=== PATIENT | female | born 1980 | race African-American/Black ===

== ENCOUNTER 2019-06-23 18:10 | Emergency (ER) | payer BC, SELFPAY ==
--- OUTSIDE RECORDS SUMMARY | 2019-06-23 18:12 | XMS REPORT ---
:1980 [facility] Tariq [address] [place] [id number] Care Team Providers Name Role Phone Unavailable Unavailable Unavailable Problems This patient has no known problems. Allergies, Adverse Reactions, Alerts This patient has no known allergies or adverse reactions. Medications This patient has no known medications.
--- OUTSIDE RECORDS SUMMARY | 2019-06-23 18:12 | XMS REPORT | Summary of Care ---
:1980 Author Organization [facility] Address [address] [place] [id number] Care Team Providers Name Role Phone Renea Hastings Primary Care Provider Reason for Visit Reason Comments Well Woman Exam Encounter Details Date Type Department Care Team Description 12/19/2018 Office Visit [facility]- Renea Hastings Well woman exam (Primary Dx); JOHN Cuellar Dysuria; [address] Encounter for other contraceptive management; [employer], [place] KRI[place]IN A Vaginal discharge [id number] [place], [place] [id number] Allergies Active Allergy Reactions Severity Noted Date Comments Sulfa (Sulfonamide Antibiotics) Hives 11/16/2017 documented as of this encounter (statuses as of 12/20/2018) Medications Medication Sig Dispensed Refills Start Date End Date Status doxycycline 100 mg Take 1 capsule 20 capsule 0 11/16/2017 Active capsule by mouth 2 (two) times daily. ondansetron (ZOFRAN Take 1 tablet by 12 tablet 0 11/16/2017 Active ODT) 4 mg mouth every 8 disintegrating tablet (eight) hours as needed for Nausea and Vomiting (N/V). norgestimate-ethinyl Take 1 tablet by 0 Active estradiol mouth daily. (TRI-SPRINTEC) 0.18/0.215/0.25 mg-35 mcg (28) tablet norgestimate-ethinyl Take 1 tablet by 1 Package 2 12/19/2018 Active estradiol mouth daily. (GCB-GA-CHUZCQKR) 0.18/0.215/0.25 mg-25 mcg tabletIndications: Encounter for other contraceptive management documented as of this encounter (statuses as of 12/20/2018) Active Problems Problem Noted Date Well woman exam 12/19/2018 Contraceptive management 12/19/2018 Tobacco use disorder 12/19/2018 documented as of this encounter (statuses as of 12/20/2018) Social History Tobacco Use Types Packs/Day Years Used Date Current Every Day Smoker Cigarettes 0.1 Started: 12/19/1998 Smokeless Tobacco: Never Used Tobacco Cessation: Ready to Quit: No; Counseling Given: Yes Alcohol Use Drinks/Week oz/Week Comments Not Currently Sex Assigned at Date Recorded Not on file Job Start Date Occupation Industry Not on file Not on file Not on file Travel History Travel Start Travel End No recent travel history available. documented as of this encounter Last Filed Vital Signs Vital Sign Reading Time Taken Comments Blood Pressure 158/86 12/19/2018 4:01 PM CDT Pulse 94 12/19/2018 4:01 PM CDT Temperature 37.8 C (100 F) 12/19/2018 4:01 PM CDT Respiratory Rate 16 12/19/2018 4:01 PM CDT Oxygen Saturation - - Inhaled Oxygen Concentration - - Weight 59.6 kg (131 lb 6 oz) 12/19/2018 4:01 PM CDT Height 154.9 cm (5' 1") 12/19/2018 4:01 PM CDT Body Mass Index 24.82 12/19/2018 4:01 PM CDT documented in this encounter Patient Instructions Patient InstructionsLeighann Mcdonnell LVN - 12/19/2018 3:45 PM CDT Clinical Breast Exam Many health organizations recommend a yearly clinical breast exam. This exam may be done by a restaurant expeditor, family healthcare provider, nurse practitioner, nurse loading unit operator crimping, or specially trained nurse. Yearly breast exams help tomake surethat breast conditions are found early. Your healthcare providers role A healthcare professional knows the tests and follow-up care needed if a problem is found. Your clinical exam is also a great time to ask questions about breast self-exams. You can find out if yourechecking your breasts in the best way. Or you may want to ask how , breast implants, or breast reduction surgery affect the way you should check your breasts. Diagnostic tests If a clinical exam reveals a breast change, you may have other tests to find out more. These tests may include: Mammography. A low-dose X-ray of your breast tissue. Ultrasound. An imaging test that uses sound waves to create images of your breast. Biopsy. A small amount of breast tissue is removed by needle or by a cut ( incision). The tissue is then checked under a microscope. Guidelines for having clinical breast exams The [place] [employer] recommends that starting at age 29, you should have a clinical breast exam every 1 to 3 years. After age 40, have a clinical breast exam each year. If youre at higher risk for breast cancer, you may need exams more often. Risk factors for breast cancer may include: Being over 50 or postmenopausal Having a family history of breast cancer Having the BRCA1 or BRCA2 gene mutation or certain other gene mutations Having more menstrual periods due to starting menstruation early(before age 12) or having a late menopause (after age 55) Having no pregnancies Having a first after age 30 Being obese Having a history of radiation treatment to your chest area Exposure to KARIN during your mother's Not being active Drinking too much alcohol Having dense breast tissue Taking hormone therapy after menopause Other health organizations have different recommendations. Talk with your healthcare provider about what is best for you. Date Last Reviewed: 12/19/201619990352-34[address] [employer] [place] [address]. All rights reserved. This information is not intended as a substitute for professional medical care. Always follow your healthcare professional's instructions. Breast Health: Breast Self-Awareness What is breast self-awareness? Breast self-awareness is knowing how your breasts normally look and feel. Your breasts change as yougo through different stages of your life. So its important to learn what is normal for your breasts. Breast self-awareness helps you notice any changes in your breasts right away. Report any changesto your healthcare provider. Why is breast self-awareness important? Many experts now say that women should focus on breast self-awareness instead of doing a breast self-examination (BSE). These experts include the [place] [employer], the U.S. Preventive Services Task Force, and the [place] [employer]. Some experts even advise notteaching women to do a BSE. Thats because research hasnt shown a clear benefit to doing BSEs. Breast self-awareness is different than a BSE. Breast self-awareness isnt about following a certain method and schedule. Its about knowing what's normal for your breasts. That way you can notice even small changes right away. If you see any changes, report them to your healthcare provider. Changes to look for Call your healthcare provider if you find any changes in your breasts that concern you. These changes may include: A lump Nipple discharge other than breastmilk, especially a bloody discharge Swelling A change in size or shape Skin irritation, such as redness, thickening, or dimpling of the skin Swollen lymph nodes in the armpit Nipple problems, such as pain or redness If you find a lump Contact your provider if you find lumpiness in one breast, feel something different in the tissue, or feel a definite lump. Sometimes lumpiness may be due to menstrual changes. But there may be reason for concern. Your provider may want to see you right away if you have: Nipple discharge that is bloody Skin changes on your breast, such as dimpling or puckering Its normal to be upset if you find a lump. But its important to contact your provider right away. Remember that most breast lumps are benign. This means they are not cancer. Date Last Reviewed: 12/19/201619994304-3742 [employer]. [address] [place] [address]. All rights reserved. This information is not intended as a substitute for professional medical care. Always follow your healthcare professional's instructions. Prevention Guidelines,Women Ages 18 to 39 Screening tests and vaccines are an important part of managing your health. A screening test is doneto find possible disorders or diseases in people who don' t have any symptoms. The goal is to find a disease early so lifestyle changes can be made and you can be watched more closely to reduce the riskof disease, or to detect it early enough to treat it most effectively. Screening tests are not considered diagnostic, but are used to determine if more testing is needed. Health counseling is essential, too. Below are guidelines for these, for women ages 18 to 39. Talk with your healthcare provider tomake sure youre up-to- date on what you need. Screening Who needs it How often Alcohol misuse All women in this age group At routine exams Blood pressure All women in this age group Yearly checkup if your blood pressure is normal Normal blood pressure is less than 120/80 mm Hg If your blood pressure reading is higher than normal, follow the advice of your healthcare provider Breast cancer All women in this age group should talk with their healthcare providers about the needfor clinical breast exams (CBE)1 Clinical breast exam every 3 years1 Cervical cancer Women ages 21 and older Women between ages 21 and 29 should have a Pap test every 3 years; women between ages 30 and 65 are advised to have a Pap test plus an HPV test every 5 years Chlamydia Sexually active women ages 25 and younger, and women at increased risk for infection (suchas having multiple sex partners) Every year if you're at risk or have symptoms Depression All women in this age group At routine exams Type 2 diabetes, prediabetes All women with no symptoms who are overweight or obese and have 1 or more other risk factors for diabetes At least every 3 years. Also, testing for diabetes during after the 24th week. Type 2 diabetes, prediabetes All women diagnosed with gestational diabetes Lifelong testing every 3 years Type 2 diabetes All women with prediabetes Every year Gonorrhea Sexually active women at increased risk for infection At routine exams Hepatitis C Anyone at increased risk At routine exams HIV All women should be tested at least once for HIV between the ages of 13 and 64 At routine exams.Those with risk factors for HIV should be tested at least annually. Obesity All women in this age group At routine exams Syphilis Women at increased risk for infection should talk with their healthcare provider At routineexams Tuberculosis Women at increased risk for infection should talk with their healthcare provider Ask your healthcare provider Vision All women in this age group At least 1 complete exam in your 20s, and 2 in your 30s Vaccine2 Who needs it How often Chickenpox (varicella) All women in this age group who have no record of this infection or vaccine 2doses; the second dose should be given 4 to 8 weeks after the first dose Hepatitis A Women at increased risk for infection should talk with their healthcare provider 2 dosesgiven at least 6 months apart Hepatitis B Women at increased risk for infection should talk with their healthcare provider 3 dosesover 6 months; second dose should be given 1 month after the first dose; the third dose should be given at least 2 months after the second dose and at least 4 months after the first dose Haemophilus influenzaeType B (HIB) Women at increased risk for infection should talk with their healthcare provider 1 to 3 doses Human papillomavirus (HPV) All women in this age group up to age 26 3 doses; the second dose should be given 1 to 2 months after the first dose and the third dose given 6 months after the first dose Influenza (flu) All women in this age group Once a year Measles, mumps, rubella (MMR) All women in this age group who have no record of these infections or vaccines 1 or 2 doses Meningococcal Women at increased risk for infection should talk with their healthcare provider 1 or more doses Pneumococcal conjugate vaccine (PCV13)and pneumococcal polysaccharide vaccine(PPSV23) Women at increased risk for infection should talk with their healthcare provider PCV13: 1 dose ages 19 to 65 (protects against 13 types of pneumococcal bacteria) PPSV23: 1 to2 doses through age 64, or 1 dose at 65 or older (protects against 23 types of pneumococcal bacteria) Tetanus/diphtheria/pertussis (Td/Tdap) booster All women in this age group Td every 10 years, or a one-time dose of Tdap instead of a Td booster after age 18 , then Td every 10 years Counseling Who needs it How often BRCA gene mutation testing for breast and ovarian cancer susceptibility Women with increased risk for having gene mutation When your risk is known Breast cancer and chemoprevention Women at high risk for breast cancer When your risk is known Diet and exercise Women who are overweight or obese When diagnosed, and then at routine exams Domestic violence Women at the age in which they are able to have children At routine exams Sexually transmitted infection prevention Women who are sexually active At routine exams Skin cancer Prevention of skin cancer in fair-skinned adults At routine exams Use of tobacco and the health effects it can cause All women in this age group Every visit 1 According to the ACS, women ages 20 to 39 years should have a clinical breast exam (CBE) as part of their routine health exam every 3 years. Breast self- exams are an option for women starting in their 20s.But the USPSTF does not recommend CBE. Date Last Reviewed: 02/18/201719995507-4003 [employer]. [address] [place] [address]. All rights reserved. This information is not intended as a substitute for professional medical care. Always follow your healthcare professional's instructions. Understanding STDs When it comes to sex, nothing is risk-free. Any sexual contact with the penis, vagina, anus, or mouth can spread a sexually transmitted disease (STD). The only sure way to prevent STDs is abstinence (not having sex). But there are ways to make sex safer. Use a latex condom each time you have sex. And choose your partner wisely. Use condoms for safer sex If you have sex, latex condoms provide the best protection against STDs. Latex condoms stop the exchange of body fluids that carry certain STDs. They also limit contact with affected skin. Be aware though, a condom doesnt cover all skin. So, affected skin that is not covered can still transfer disease. But you re safer with a condom than without one. Use a condom even if you use other control. While control methods like the pill or IUD help prevent , they do not protect against STDs. Choose the right condom Condoms made of latex prevent disease best. If youre allergic to latex, use polyurethane condoms instead. Male condoms fit over the penis. Female condoms line the vagina. Before buying a condom, read the label to be sure it prevents disease. Some novelty condoms dont. The right lubricant helps Buy lubricated condoms or use lubricant. This provides greater comfort and reduces the risk of condom breakage. Use only water-based lubricants. Dont use oil, lotion, or petroleum jelly. They can weaken the condom, causing breakage. Also, you may want to choose lubricants without nonoxynol-9. Its now known that this spermicide does not prevent disease and may cause irritation. Use condoms correctly For condoms to work, they must be used the right way. Keep these tips in mind: Use a new latex condom each time you have sex. Slip the condom on the penis before any contact ismade. When ready to withdraw, hold the rim of the condom as the penis pulls out. This prevents the condom from slipping off. Check the expiration date before using a condom. Dont store condoms in places that can get hot, such as a car or a wallet that is carried in a back pocket. Get to know your partner Safer sex is a process. It involves getting to know your partner and making informed choices. Ask each other how many partners you have had in the past, and how many you have now. Find out if either ofyou has an STD. If you decide to have sex, use a condom each time. Dont stop using condoms unlessyoure sure neither of you has other partners and youve both been tested to confirm you donthave STDs. Then stay free of disease by having sex only with each other (monogamy). Keep your cool Dont let alcohol or drugs cloud your judgment. They could lead you to have sex with someone you wouldnt have chosen if you were sober. Or, you might forget to use a condom. If you do plan to havesex, keep a latex condom with you. Dont wait until youre in the heat of passion to try to findone. Consider abstinence The only way to be sure you wont get an STD is to abstain from sex. Abstinence is a choice that many people make at some point in their lives. Maybe you want to wait until you are sure youre ready before you have sex. Maybe youd like a break from the responsibilities of sex for a while. Or maybe you just want to know your partner better before taking the next step. Abstinence is a choice youcan make now to protect your future. Date Last Reviewed: 04/20/201619996217-[address] [employer] [place] [address]. All rights reserved. This information is not intended as a substitute for professional medical care. Always follow your healthcare professional's instructions. Understanding HIV and AIDS If you know how HIV (human immunodeficiency virus) can get into your body and what happens once its there, youll be better prepared to protect yourself or others against this virus. A person withHIV can look and feel perfectly healthy. But that person can give HIV to others as soon as he or sheis infected with the virus. Note: Having unsafe or unprotected sex or sharing needles put you at risk for HIV. Talk with your healthcare provider about ways to protect yourself or a loved one from getting HIV. How HIV enters the body HIV is carried in semen, vaginal fluid, blood, and breast milk. During sex, HIV can enter the body through the fragile tissue that lines the vagina, penis, anus,and mouth. During drug use, tattooing, or body piercing, the virus can enter the bloodstream through a shared needle. A mother who has HIV can infect her child during childbirth and through . How HIV infection progresses After HIV enters the body, it attacks the immune system in stages. A person with HIV can infect others once the virus enters the bloodstream. HIV with no symptoms. A person with HIV may have no symptoms for years. A positive blood test for HIV antibodies 6 weeks to 6 months after HIV enters the body may be the only sign of infection. HIV with symptoms.Some people develop an illness similar to mononucleosis (or "mono") 2 to 4 weeksafter the virus enters the body. Symptoms may include swollen lymph glands, chills, fever, night sweats, weakness, weight loss, skin rashes, mouth ulcers, or sore throat. Symptoms may be mild at first and then slowly go away. In a very few individuals, symptoms may get progressively worse and last forlonger and longer periods. AIDS. AIDS is the last stage of HIV infection. Diseases and cancers begin to overcome the body. It is these diseases, not the virus itself, that cause . HIV may also attack the brain and nervous system, causing seizures and loss of memory and body movement. Date Last Reviewed: 03/21/201619993028-0[address] [employer]. [address] [place] [address]. All rights reserved. This information is not intended as a substitute for professional medical care. Always follow your healthcare professional's instructions. Eating Heart-Healthy Foods Eating has a big impact on your heart health. In fact, eating healthier can improve several of your heart risks at once. For instance, it helps you manage weight, cholesterol, and blood pressure. Here are ideas to help you make heart- healthy changes without giving up allthe foods and flavors you love. Getting started Talk with your healthcare provider about eating plans, such as the DASH or Mediterranean diet. You may also be referred to a dietitian. Change a few things at a time. Give yourself time to get used to a few eating changes before adding more. Work to create a tasty, healthy eating plan that you can stick to for the rest of your life. Goals for healthy eating Below are some tips to improve your eating habits: Limit saturated fats and trans fats. Saturated fats raise your levels of cholesterol, so keep these fats to a minimum. They are found in foods such as fatty meats, whole milk, cheese, and palm and coconut oils. Avoid trans fats because they lower good cholesterol as well as raise bad cholesterol. Trans fats are most often found in processed foods. Reduce sodium (salt) intake. Eating too much salt may increase your blood pressure. Limit your sodium intake to 2,300 milligrams (mg) per day(the amount in 1 teaspoon of salt), or less if your healthcare provider recommends it. Dining out less often and eating fewer processed foods are two great ways to decrease the amount of salt you consume. Managing calories. A calorie is a unit of energy. Your body morejon calories for fuel, but if you eat more calories than your body morejon, the extras are stored as fat. Your healthcare provider can help you create a diet plan to manage your calories. This will likely include eating healthier foods as well as exercising regularly. To help you track your progress, keep a diary to record what you eat and how often you exercise. Choose the right foods Aim to make these foods iglesia of your diet. If you have diabetes, you may have different recommendations than what is listed here: Fruits and vegetables provide plenty of nutrients without a lot of calories. At meals, fill half your plate with these foods. Split the other half of your plate between whole grains and lean protein. Whole grains are high in fiber and rich in vitamins and nutrients. Good choices include whole-wheat bread, pasta, and brown rice. Lean proteins give you nutrition with less fat. Good choices include fish, skinless chicken, and beans. Low-fat or nonfat dairy provides nutrients without a lot of fat. Try low-fat or nonfat milk, cheese, or yogurt. Healthy fats can be good for you in small amounts. These are unsaturated fats , such as olive oil,nuts, and fish. Try to have at least 2 servings per week of fatty fish, such as salmon, sardines, mackerel, rainbow trout, and albacore tuna. These contain omega-3 fatty acids, which are good for your heart. Flaxseed is another source of a heart-healthy fat. More on heart-healthy eating Read food labels Healthy eating starts at the grocery store. Be sure to pay attention to food labels on packaged foods. Look for products that are high in fiber and protein, and low in saturated fat, cholesterol, and sodium. Avoid products that contain trans fat. And pay close attention to serving size. For instance, if you plan to eat two servings, double all the numbers on the label. Prepare food right A muse part of healthy cooking is cutting down on added fat and salt. Look on the internet for lower-fat, lower-sodium recipes. Also, try these tips: Remove fat from meat and skin from poultry before cooking. Skim fat from the surface of soups and sauces. Broil, boil, bake, steam, grill, and microwave food without added fats. Choose ingredients that spice up your food without adding calories, fat, or sodium. Try these items: horseradish, hot sauce, lemon, mustard, nonfat salad dressings, and vinegar. For salt-free herbs and spices, try basil, cilantro, cinnamon, pepper, and tru. Date Last Reviewed: 02/18/201719999021-9365 [employer] [address] [place] [address]. All rights reserved. This information is not intended as a substitute for professional medical care. Always follow your healthcare professional's instructions. Understanding [place] MyPlate The USDA (U.S. Department of Agriculture) has guidelines to help you make healthy food choices. These are called MyPlate. MyPlate shows the food groups that make up healthy meals using the image of a place setting. Before you eat, think about the healthiest choices for what to put onto your plate or into your cup or bowl. To learn more about building a healthy plate, visit www.choosemyplate.gov. The food groups Fruits. Any fruit or 100% fruit juice counts as part of the Fruit Group. Fruits may be fresh, canned, frozen, or dried, and may be whole, cut-up, or pureed. Make half your plate fruits and vegetables. Vegetables. Any vegetable or 100% vegetable juice counts as a member of the Vegetable Group. Vegetables may be fresh, frozen, canned, or dried. They can be served raw or cooked and may be whole, cut-up, or mashed. Make half your plate fruits and vegetables. Grains. All foods made from grains are part of the Grains Group. These include wheat, rice, oats,cornmeal, and barley such as bread, pasta, oatmeal, cereal, tortillas, and grits. Grains should be no more than a quarter of your plate. At least half of your grains should be whole grains. Protein. This group includes meat, poultry, seafood, beans and peas, eggs, processed soy products(like tofu), nuts (including nut butters), and seeds. Make protein choices no more than a quarter ofyour plate. Meat and poultry choices should be lean or low fat. Dairy. All fluid milk products and foods made from milk that contain calcium , like yogurt and cheese, are part of the Dairy Group. (Foods that have little calcium, such as cream, butter, and cream cheese, are not part of the group.) Most dairy choices should be low-fat or fat-free. Oils. These are fats that are liquid at room temperature. They include canola , corn, olive, soybean, and sunflower oil. Foods that are mainly oil include mayonnaise, certain salad dressings, and soft margarines. You should have only 5 to 7 teaspoons of oils a day. You probably already get this muchfrom the food you eat. Date Last Reviewed: 12/19/201619992100-5682 [employer]. [address] [place] [address]. All rights reserved. This information is not intended as a substitute for professional medical care. Always follow your healthcare professional's instructions. documented in this encounter Progress Notes Renea Hastings, CNP - 12/19/2018 3:45 PM CDT Chief complaint: Chief Complaint Patient presents with Well Woman Exam HPI: the patient is here for WWE and contraceptive management. She reports she is doing well today. She does reports vaginal discharge with odor. She reports the last time she had intercourse was about2 months ago, she declines having a new partner. She reports ocp use for control and reports the last time she took a pill was about 1 month ago. Pt (denies) current or past physical, sexual or emotional abuse. Histories OB History Para Term AB Living 2 2 2 2 SAB TAB Ectopic Multiple Live Births 2 # Outcome Date GA Lbr Reynaldo/2nd Weight Sex Delivery Anes PTL Lv 2 Term 08/17/11 40w0d 5 lb 14 oz (2.665 kg) M NORMAL SPONT Y DEVONTE 1 Term 07/18/02 40w0d 7 lb 1 oz (3.204 kg) M NORMAL SPONT DEVONTE History reviewed. No pertinent past medical history. Family History Problem Relation Age of Onset Arthritis Father High cholesterol Father No Significant Medical Problems Sister No Significant Medical Problems Brother No Significant Medical Problems Maternal Aunt No Significant Medical Problems Maternal Uncle No Significant Medical Problems Paternal Aunt No Significant Medical Problems Paternal Uncle No Significant Medical Problems Maternal Grandmother No Significant Medical Problems Maternal Grandfather No Significant Medical Problems Paternal Grandmother No Significant Medical Problems Paternal Grandfather Family Status Relation Name Status Mo Alive Fa Alive Sis Alive Bro Alive MAunt Alive MUnc Alive PAunt Alive PUnc Alive MGMo Alive MGFa Alive PGMo Alive PGFa Alive Past Surgical History: Procedure Laterality Date CHOLECYSTECTOMY 2016 Social History Socioeconomic History Marital status: Single Spouse name: Not on file Number of children: Not on file Years of education: Not on file Highest education level: Not on file Occupational History Not on file Social Needs Financial resource strain: Not on file Food insecurity: Worry: Not on file Inability: Not on file Transportation needs: Medical: Not on file Non-medical: Not on file Tobacco Use Smoking status: Current Every Day Smoker Packs/day: 0.10 Types: Cigarettes Start date: 12/19/1998 Smokeless tobacco: Never Used Substance and Sexual Activity Alcohol use: Not Currently Drug use: Not Currently Sexual activity: Yes Partners: Male control/protection: Pill Comment: Last intercourse 10/19/2018 Lifestyle Physical activity: Days per week: Not on file Minutes per session: Not on file Stress: Not on file Relationships Social connections: Talks on phone: Not on file Gets together: Not on file Attends caodaism service: Not on file Active member of club or organization: Not on file Attends meetings of clubs or organizations: Not on file Relationship status: Not on file Intimate partner violence: Fear of current or ex partner: Not on file Emotionally abused: Not on file Physically abused: Not on file Forced sexual activity: Not on file Other Topics Concern Not on file Social History Narrative Not on file Social History Substance and Sexual Activity Sexual Activity Yes Partners: Male control/protection: Pill Comment: Last intercourse 10/19/2018 Labs Labs are pending. Radiology No new radiology. Allergies Kalpana is allergic to sulfa (sulfonamide antibiotics). Medications Kalpana has a current medication list which includes the following prescription( s): norgestimate-ethinyl estradiol, norgestimate-ethinyl estradiol, doxycycline , and ondansetron. Review of Systems Constitutional: Negative. HENT: Negative. Eyes: Negative. Respiratory: Negative. Breasts: Negative. Cardiovascular: Negative. Gastrointestinal: Negative. Genitourinary: Positive for vaginal discharge. Musculoskeletal: Negative. Skin: Negative. Neurological: Negative. Psychiatric/Behavioral: Negative. Endocrine: Endocrine negative BP (!) 158/86 (BP Location: Right arm, Patient Position: Sitting, BP CUFF SIZE: Adult Medium) | Pulse 94 | Temp 37.8 C (100 F) (Oral) | Resp 16 | Ht 5' 1" (1.549 m) | Wt 131 lb 6 oz (59.6 kg)| LMP 12/04/2018 (Approximate) | BMI 24.82 kg/m Pregravid BMI: Could not be calculated Physical Exam Vitals reviewed. Constitutional: She is oriented to person, place, and time. She appears well- developed. Her body habitus is normal. Neck: No tenderness and no mass. No thyroid nodules and no thyromegaly palpated. No neck adenopathy. Cardiovascular: Regular rate and rhythm. No gallop, no friction rub and no murmur auscultated. No peripheral edema present. Pulmonary/Chest: Breath sounds clear to auscultation. Normal inspiratory effort. Abdominal: Abdomen is soft. No mass palpated. No tenderness present. There is no hepatosplenomegaly,splenomegaly or hepatomegaly. There is no rigidity. No hernia palpated or inspected. Neuro/Psychiatric: She has a normal mood and affect. She is oriented to person, place, and time. Skin: No lesion, no rash and no ulceration present. Lymphadenopathy: No neck adenopathy present. No axillary adenopathy present. No inguinal adenopathy present. Breast: Right breast exhibits no mass, no nipple discharge and no tenderness. Left breast exhibits no mass, no nipple discharge and no tenderness. Breasts are symmetrical. Normal left breast and normalright breast Rectal: Rectal exam with normal anal tone. No mass, no external hemorrhoid and no internal hemorrhoid palpated or inspected. External genitalia: Normal external genitalia appropriate for age. Normal hair distribution. No labial lesion. Urethral meatus: Normal urethral meatus size, location and no lesion. No prolapse present. Normal urethral meatus Urethra: Normal urethra. No urethral tenderness, no mass and no urethral scarring palpated. Bladder: Bladder has no fullness, no mass palpated and no tenderness. Normal bladder Vagina:No lesion inspected. Normal estrogen effect. Normal support. Vaginal discharge found. Very scant discharge noted Cervix: Normal cervix. No lesion. No tenderness and no discharge present. Uterus: Uterus is normal size, normal contour, normal position and non-tender. Normal uterus Adnexa: Right adnexa without tenderness, ovary enlargement or mass. Left adnexa without tenderness, ovary enlargement or mass. Normal left adnexa and normal right adnexa Anus/perineum: Normal perineum and normal anus. Assessment/Plan Return to clinic in 12 weeks. 03/2019 for WWE or sooner as needed Rubella/VZV: immune/pending BMI: 24 Td: pending Pap Smear: ROR requested Gardasil:na Mammogram:na Guaiac:na Colonoscopy:na Well woman exam (primary encounter diagnosis) Comment: routine Plan: PAP Smear-Liquid Based, HIGH RISK HPV-THIN PREP Encounter for other contraceptive management Comment: as ordered Plan: norgestimate-ethinyl estradiol (OTW-TC-WGZDBXOM) 0.18/0.215/0.25 mg-25 mcg tablet, POCT TEST Vaginal discharge Comment: reports Plan: GALV ONLY - VAGINAL PATHOGENS BY DNA PROBE Tobacco use Comment: reports Plan: smoking cessation encouraged Elevated bp Comment: asymptotic Plan: Patient encouraged to make lifestyle modifications, limit salt intake, weight loss encouraged,exercise 30min/day 4-5 times a week. Healthy diet high in fruits, veggies, whole grains, low-fat dairy, moderate alcohol consumption This visit did not involve counseling and coordination that comprised more than 50% of the visit time. JOHN Gaviria 12/19/2018 4:34 PM Tonya Marshall RN - 12/19/2018 3:45 PM CDT38 year old presents to the clinic for wwe. 1) Previous BCM: OCP, tri sprintec 28 2) Desired BCM: OCP 3) LMP: 12/04/2018 4) Last Anita: 10/19/2018 5) Last Pap: 10/2017 Results: Negative per patient report. ROR requested. 6) Tdap: 2012 7) Gardasil: N/A 8) C/O: Foul smelling urine 9) Patient denies history of physical, emotional, or sexual abuse. Patient states that she currently feels safe at home. TONYA CHATMAN RN 12/19/2018 4:08 PM documented in this encounter Plan of Treatment Date Type Specialty Care Team Description 03/17/2019 Nurse Visit OB Satellites Visit, [facility] Nurse Name Type Priority Associated Diagnoses Date/Time GALV ONLY - VAGINAL LAB Routine Vaginal discharge 12/19/2018 4:35 PM CDT PATHOGENS BY DNA PROBE URINE CULTURE LAB Routine Vaginal discharge 12/19/2018 4:38 PM CDT Name Type Priority Associated Diagnoses Order Schedule PAP Smear-Liquid Based LAB Routine Well woman exam Ordered: 12/19/2018 HIGH RISK HPV-THIN PREP LAB Routine Well woman exam Ordered: 12/19/2018 Health Maintenance Due Date Last Done Comments PNEUMOCOCCAL 0-64 YEARS COMBINED SERIES (1 of 1 - 1986 PPSV23) VARICELLA VACCINES (1 of 2 - 13+ 2-dose series) 1993 DTaP,Tdap,and Td Vaccines (1 - Tdap) 10/03/1999 PAP SMEAR 12/09/2013 12/09/2010 INFLUENZA VACCINE 01/19/2019 documented as of this encounter Procedures Procedure Name Priority Date/Time Associated Diagnosis Comments POCT TEST Routine 12/19/2018 4:37 Encounter for other Results for this PM CDT contraceptive procedure are in management the results section. POCT URINALYSIS W/O Routine 12/19/2018 4:13 Dysuria Results for this SPECIFIC GRAVITY PM CDT procedure are in the results section. documented in this encounter Results POCT TEST (12/19/2018 4:37 PM CDT) POCT PREG Negative On board controls acceptable Yes with C Line POCT PREG LOT # POCT PREG TEST DATE Specimen Urine - URINE, CLEAN CATCH POCT URINALYSIS W/O SPECIFIC GRAVITY (12/19/2018 4:13 PM CDT) POCT PH U 6 5 - 8 mg/dl POCT U LEUK EST Trace Negative - Negative POCT U NIT Pos Negative - Negative POCT U PROT Trace Negative - Negative POCT U GLU Neg Negative - Negative POCT U KETONE None Negative - Negative POCT U BLD Small Negative - Negative Specimen Urine - URINE, CLEAN CATCH documented in this encounter Visit Diagnoses Diagnosis Well woman exam - Primary Routine general medical examination at a health care facility Dysuria Encounter for other contraceptive management Vaginal discharge Leukorrhea, not specified as infective documented in this encounter Insurance Payer Benefit Plan Subscriber ID Effective Phone Address Type / Group Dates [facility] xxxxxxxxx 2018-Prese [phone] Medicaid WOMEN nt [address] [place] [address] (Home) [place] [address] documented as of this encounter Advance Directives Name Relationship Healthcare Agent Relationship Communication Neris Foster Mother First alternate healthcare agent
--- OUTSIDE RECORDS SUMMARY | 2019-06-23 18:12 | XMS REPORT | Summary of Care ---
:1980 Author Organization [facility] Address [address] [place] [id number] Care Team Providers Name Role Phone Renea Hastings Primary Care Provider Reason for Visit Reason Comments Well Woman Exam Encounter Details Date Type Department Care Team Description 12/19/2018 Office Visit [facility]- Renea Hastings Well woman exam (Primary Dx); JOHN Cuellar Dysuria; [address] Encounter for other contraceptive management; [place], [place] Vaginal discharge [id number] [place], [place] [id number] Allergies Active Allergy Reactions Severity Noted Date [...] Package 2 12/19/2018 Active estradiol mouth daily. ([id number]-ST-[id number]) 0.18/0.215/0.25 mg-25 mcg tabletIndications: Encounter for other [...] This exam may be done by a loss control engineer, family healthcare provider, nurse practitioner, nurse well tender, or specially trained nurse. Yearly breast exams [...] Guidelines for having clinical breast exams The [employer]st[employer]ians [employer] Gynec[employer] recommends that [...] is best for you. Date Last Reviewed: 12/19/201619990615-2144 [employer]. [address] [place] [address]. All rights reserved. This information is not [...] breast self-examination (BSE). These experts include the [employer], the U.S. Preventive Services Task Force, and the [place] [employer] of Obstetricians and Gynecologists. Some experts [...] they are not cancer. Date Last Reviewed: 12/19/201619996839-2560 [employer]. [address] [place] [address]. All rights reserved. This information is not [...] does not recommend CBE. Date Last Reviewed: 02/18/201719990451-9850 [employer]. [address] [place] [address]. All rights reserved. This information is not [...] to protect your future. Date Last Reviewed: 04/20/201619996760-9102 [employer]. [address] [place] [address]. All rights reserved. This information is not [...] memory and body movement. Date Last Reviewed: 03/21/201619997311-5303 [employer]. [address] [place] [address]. All rights reserved. This information is not [...] cinnamon, pepper, and tru. Date Last Reviewed: 02/18/201719994615-2718 [employer]. [address] [place] [address]. All rights reserved. This information is not intended as a substitute for professional medical care. Always follow your healthcare professional's instructions. Understanding [employer] The USDA (U.S. Department of Agriculture) [...] the food you eat. Date Last Reviewed: 12/19/201619997962-4970 [employer]. [address] [place] [address]. All rights reserved. This information is not [...] file Gets together: Not on file Attends oriental orthodox service: Not on file Active member of [...] management Comment: as ordered Plan: norgestimate-ethinyl estradiol (EHS-MR-RKOHZOUT) 0.18/0.215/0.25 mg-25 mcg tablet, POCT TEST Vaginal [...] BCM: OCP 3) LMP: 12/04/2018 4) Last [place]: 10/19/2018 5) Last Pap: 10/2017 Results: Negative [...] Description 03/17/2019 Nurse Visit OB Satellites Visit, [facility] Nurse Name Type Priority Associated Diagnoses [...] Effective Phone Address Type / Group Dates [facility] xxxxxxxxx 2018-Prese [phone] Medicaid WOMEN nt [address] [place] [address] (Home) [place] [address] documented as of this encounter Advance Directives Name Relationship Healthcare Agent Relationship Communication Neris Foster Mother First alternate healthcare agent
--- OUTSIDE RECORDS SUMMARY | 2019-06-23 18:13 | XMS REPORT | Summary of Care ---
:1980 Author Organization [facility] Address [address] [place] [address] Care Team Providers Name Role Phone Renea Hastings [facility] Primary Care Provider Reason for Visit Reason Comments Results Encounter Details Date Type Department Care Team Description 12/23/2018 Telephone [facility] [place] Renea Hastings, Results [address] [place] [address] [address] [facility] [phone] [place] [address] Allergies Active Allergy Reactions Severity Noted Date Comments Sulfa (Sulfonamide Antibiotics) Hives 11/16/2017 documented as of this encounter (statuses as of 12/24/2018) Medications Medication Sig Dispensed Refills Start Date [...] Package 2 12/19/2018 Active estradiol mouth daily. (XFI-[id number]) 0.18/0.215/0.25 mg-25 mcg tabletIndications: Encounter for other contraceptive management Nitrofurantoin&Nit. Take 1 capsule 20 capsule 0 12/24/2018 Active Macrocryst (MACROBID) by mouth 2 (two) 100 mg times daily. capsuleIndications: Acute cystitis without hematuria metroNIDAZOLE 500 mg Take 1 tablet by 14 tablet 0 12/24/2018 Active tabletIndications: BV mouth 2 (two) (bacterial vaginosis) times daily. documented as of this encounter (statuses as of 12/24/2018) Active Problems Problem Noted Date Well woman exam 12/19/2018 Contraceptive management 12/19/2018 Tobacco use disorder 12/19/2018 documented as of this encounter (statuses as of 12/24/2018) Social History Tobacco Use Types Packs/Day Years Used Date Current Every Day Smoker Cigarettes 0.1 Started: 12/19/1998 Smokeless Tobacco: Never Used Alcohol Use Drinks/Week oz/Week Comments Not Currently Sex Assigned at Date Recorded Not on file Job Start Date Occupation Industry Not on file Not on file Not on file Travel History Travel Start Travel End No recent travel history available. documented as of this encounter Last Filed Vital Signs Not on filedocumented in this encounter Plan of Treatment Date Type Specialty Care Team Description 03/17/2019 [facility] Nurse Health Maintenance Due Date Last Done Comments PNEUMOCOCCAL 0-64 YEARS COMBINED SERIES (1 of 1 - 1986 PPSV23) VARICELLA VACCINES (1 of 2 - 13+ 2-dose series) 1993 DTaP,Tdap,and Td Vaccines (1 - Tdap) 10/03/1999 PAP SMEAR 12/09/2013 12/09/2010 INFLUENZA VACCINE 01/19/2019 documented as of this encounter Results Not on filedocumented in this encounter Visit Diagnoses Diagnosis Acute cystitis without hematuria - Primary Acute cystitis BV (bacterial vaginosis) Vaginitis and vulvovaginitis, unspecified documented in this encounter Insurance Payer Benefit Plan Subscriber ID Effective Phone Address Type / Group Dates [facility] xxxxxxxxx 2018-Prese [phone] Medicaid WOMEN nt [address] [place] [address] documented as of this encounter Advance Directives Name Relationship Healthcare Agent Relationship Communication Neris Foster Mother First alternate healthcare agent
--- OUTSIDE RECORDS SUMMARY | 2019-06-23 18:13 | XMS REPORT | Summary of Care ---
:1980 Author Organization [facility] Address [address] [place] [address] Care Team Providers Name Role Phone Renae Hastings [facility] Primary Care Provider Reason for Visit Reason Comments Results Encounter Details Date Type Department Care Team Description 12/23/2018 Telephone [facility] [place] Renea Hastings, Results [address] [place] [address] [address] [facility] [phone] [place] [address] Allergies Active Allergy Reactions Severity [...] Package 2 12/19/2018 Active estradiol mouth daily. (SNV-LH-GTITVJUL) 0.18/0.215/0.25 mg-25 mcg tabletIndications: Encounter for other [...] Description 03/17/2019 Nurse Visit OB Satellites Visit, [facility] Nurse Health Maintenance Due Date Last Done [...] Effective Phone Address Type / Group Dates [facility] xxxxxxxxx 2018-Prese [phone] Medicaid WOMEN nt [address] [place] [address] documented as of this encounter Advance Directives Name Relationship Healthcare Agent Relationship Communication Neris Foster Mother First alternate healthcare agent
--- OUTSIDE RECORDS SUMMARY | 2019-06-23 18:13 | XMS REPORT | Summary of Care ---
:1980 Author Organization [facility] Address [address] [place] [address] Care Team Providers Name Role Phone Renea Hastings [facility] Primary Care Provider Reason for Visit Reason Comments Results Encounter Details Date Type Department Care Team Description 12/23/2018 Telephone [facility] [place] Renea Hastings, Results [address] [place] [address] [address] [facility] [phone] [place] [address] Allergies Active Allergy Reactions Severity [...] Package 2 12/19/2018 Active estradiol mouth daily. (BNJ-[id number]) 0.18/0.215/0.25 mg-25 mcg tabletIndications: Encounter for other [...] Description 03/17/2019 Nurse Visit OB Satellites Visit, [facility] Nurse Health Maintenance Due Date Last Done [...] Effective Phone Address Type / Group Dates [facility] xxxxxxxxx 2018-Prese [phone] Medicaid WOMEN nt [address] [place] [address] documented as of this encounter Advance Directives Name Relationship Healthcare Agent Relationship Communication Neris Foster Mother First alternate healthcare agent
[2019-06-23] MEDS ORDERED: AMLODIPINE 5 MG TAB ONE (19:05)
[2019-06-23] MEDS ORDERED: hydroCHLOROthiazide 25 MG TAB ONE (19:05)
[2019-06-23 19:35] LABS: Urine Blood NEGATIVE (NEG); Urine Glucose NEGATIVE (NEG); Urine Protein NEGATIVE (NEG); Urine pH 7.5 (5.0-7.0)
--- NOTE | 2019-06-23 19:41 | ER ---
Nurse's Notes [facility] Name: Kalpana Vazquez Age: 38 yrs Sex: Female : 1980 Arrival Date: 06/23/2019 Time: 18:12 Bed 26 Private MD: Diagnosis: Essential (primary) hypertension Presentation: 06/23 18:28 Presenting complaint: Patient states: I went to get a physical and they said I have ch high blood pressure, to go to the er. I used to take HCTZ for my blood pressure but I stopped a few years ago. no symptoms reports. Transition of care: patient was not received from another setting of care. Onset of symptoms was June 23, 2019. Risk Assessment: Do you want to hurt yourself or someone else? Patient reports no desire to harm self or others. Initial Sepsis Screen: Does the patient meet any 2 criteria? No. Patient's initial sepsis screen is negative. Does the patient have a suspected source of infection? No. Patient's initial sepsis screen is negative. Care prior to arrival: None. 18:28 Method Of Arrival: Ambulatory 18:28 Acuity: SB 4 Triage Assessment: 18:28 General: Appears in no apparent distress. comfortable, Behavior is calm, cooperative, ch appropriate for age. Pain: Denies pain. Neuro: No deficits noted. 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 - Coronavirus screen:: The patient has NOT traveled to [place], [place], or [place] in the past 14 days. The patient has NOT had contact with known/suspected case of Coronavirus?. - Social history:: Smoking status: Patient reports the use of cigarette tobacco products, denies chronic smoking, but will smoke occasionally, Patient/guardian denies using alcohol, street drugs. - Ebola Screening: : Patient negative for fever greater than or equal to 101.5 degrees Fahrenheit, and additional compatible Ebola Virus Disease symptoms Patient denies exposure to infectious person Patient denies travel to an Ebola-affected area in the 21 days before illness onset No symptoms or risks identified at this time. Screenin:50 Abuse screen: Denies threats or abuse. Nutritional screening: No deficits noted. vc Tuberculosis screening: No symptoms or risk factors identified. Fall Risk None identified. Assessment: 19:49 General: Appears in no apparent distress. comfortable. Pain: Denies pain. Neuro: Level vc of Consciousness is awake, alert, obeys commands, Oriented to person, place, time. Cardiovascular: Patient's skin is warm and dry. Parent/caregiver reports patient has had no cardiovascular symptoms. Respiratory: Airway is patent Respiratory effort is even, unlabored. GI: No signs and/or symptoms were reported involving the gastrointestinal system. : No signs and/or symptoms were reported regarding the genitourinary system. EENT: No signs and/or symptoms were reported regarding the EENT system. Derm: Skin temperature is warm. Musculoskeletal: Circulation, motion, and sensation intact. Range of motion: intact in all extremities. Vital Signs: 18:28 BP 176 / 103; Pulse 82; Resp 14; Temp 97.5; Pulse Ox 100% on R/A; Weight 61.23 kg; ch Height 5 ft. 1 in. (154.94 cm); Pain 0/10; 19:00 BP 154 / 90; Pulse 78; Resp 15; Pulse Ox 100% on R/A; vc 19:30 BP 150 / 94; Pulse 77; Resp 15; Pulse Ox 100% on R/A; Pain 0/10; vc 18:28 Body Mass Index 25.51 (61.23 kg, 154.94 cm) ED Course: 18:12 Patient arrived in ED. as 18:26 Maribel Klein, RN is Primary Nurse. vc 18:27 Arm band placed on Patient placed in an exam room, on a stretcher. sv 18:27 Patient has correct armband on for positive identification. Bed in low position. Call sv light in reach. Pulse ox on. NIBP on. Door closed. Head of bed elevated. 18:29 Triage completed. ch 18:32 Han Arias MD is Attending Physician. luna 18:58 Urine --Ancillary (enter results) Sent. vc 18:58 Urine Dipstick--Ancillary (enter results) Sent. vc 19:40 Alex Hernandez MD is Referral Physician. [facility] 19:50 No provider procedures requiring assistance completed. Patient did not have IV access vc during this emergency room visit. Administered Medications: 19:06 Drug: Hydrochlorothiazide 12.5 mg Route: PO; vc 19:51 Follow up: Response: No adverse reaction 19:07 Drug: Norvasc 5 mg Route: PO; vc 19:51 Follow up: Response: No adverse reaction; Blood pressure is lowered 19:51 Follow up: Response: No adverse reaction; Blood pressure is lowered Outcome: 19:40 Discharge ordered by . luna 19:50 Discharged to home ambulatory. 19:50 Condition: good 19:51 Discharged to home ambulatory. 19:51 Condition: stable 19:51 Discharge instructions given to patient, Instructed on discharge instructions, follow up and referral plans. medication usage, POC Demonstrated understanding of instructions, follow-up care, medications, POC Prescriptions given X 2. 19:52 Patient left the ED. Signatures: Milagros Villa, RN Ivonne Robertson ch, RN RN sv Anderson, Corey, MD MD cha Martinez, Amelia as Habalo, Winsy Maribel Klein RN RN vc
--- NOTE | 2019-06-23 19:42 | EDPHYS ---
Physician Documentation [facility] Name: Kalpana Vazquez Age: 38 yrs Sex: Female : 1980 Arrival Date: 06/23/2019 Time: 18:12 Bed 26 Private MD: ED Physician Han Arias HPI: 06/23 19:37 This 38 yrs old Black Female presents to ER via Ambulatory with complaints of High luna Blood Pressure. 19:37 The patient has elevated blood pressure and discovered this during work physical. luna Onset: The symptoms/episode began/occurred 1 day(s) ago. Modifying factors: The symptoms are aggravated by activity, The symptoms are alleviated by remaining still. Associated signs and symptoms: The patient has no apparent associated signs or symptoms. Severity of symptoms: At its worst the blood pressure was mild, in the emergency department the blood pressure is unchanged. The patient has experienced similar episodes in the past, multiple times. 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 - Coronavirus screen:: The patient has NOT traveled to [place], [place], or [place] in the past 14 days. The patient has NOT had contact with known/suspected case of Coronavirus?. - Social history:: Smoking status: Patient reports the use of cigarette tobacco products, denies chronic smoking, but will smoke occasionally, Patient/guardian denies using alcohol, street drugs. - Ebola Screening: : Patient negative for fever greater than or equal to 101.5 degrees Fahrenheit, and additional compatible Ebola Virus Disease symptoms Patient denies exposure to infectious person Patient denies travel to an Ebola-affected area in the 21 days before illness onset No symptoms or risks identified at this time. ROS: 19:37 Constitutional: Negative for fever, chills, and weight loss, Eyes: Negative for injury, luna pain, redness, and discharge, ENT: Negative for injury, pain, and discharge, Neck: Negative for injury, pain, and swelling, Cardiovascular: Negative for chest pain, palpitations, and edema, Respiratory: Negative for shortness of breath, cough, wheezing, and pleuritic chest pain, Abdomen/GI: Negative for abdominal pain, nausea, vomiting, diarrhea, and constipation, Back: Negative for injury and pain, : Negative for injury, bleeding, discharge, and swelling, MS/Extremity: Negative for injury and deformity, Skin: Negative for injury, rash, and discoloration, Neuro: Negative for headache, weakness, numbness, tingling, and seizure, Psych: Negative for depression, anxiety, suicide ideation, homicidal ideation, and hallucinations, Allergy/Immunology: Negative for hives, rash, and allergies, Endocrine: Negative for neck swelling, polydipsia, polyuria, polyphagia, and marked weight changes, Hematologic/Lymphatic: Negative for swollen nodes, abnormal bleeding, and unusual bruising. Exam: 19:37 Constitutional: This is a well developed, well nourished patient who is awake, alert, luna and in no acute distress. Head/Face: Normocephalic, atraumatic. Eyes: Pupils equal round and reactive to light, extra-ocular motions intact. Lids and lashes normal. Conjunctiva and sclera are non-icteric and not injected. Cornea within normal limits. Periorbital areas with no swelling, redness, or edema. ENT: Nares patent. No nasal discharge, no septal abnormalities noted. Tympanic membranes are normal and external auditory canals are clear. Oropharynx with no redness, swelling, or masses, exudates, or evidence of obstruction, uvula midline. Mucous membranes moist. Neck: Trachea midline, no thyromegaly or masses palpated, and no cervical lymphadenopathy. Supple, full range of motion without nuchal rigidity, or vertebral point tenderness. No Meningismus. Chest/axilla: Normal chest wall appearance and motion. Nontender with no deformity. No lesions are appreciated. Cardiovascular: Regular rate and rhythm with a normal S1 and S2. No gallops, murmurs, or rubs. Normal PMI, no JVD. No pulse deficits. Respiratory: Lungs have equal breath sounds bilaterally, clear to auscultation and percussion. No rales, rhonchi or wheezes noted. No increased work of breathing, no retractions or nasal flaring. Abdomen/GI: Soft, non-tender, with normal bowel sounds. No distension or tympany. No guarding or rebound. No evidence of tenderness throughout. Back: No spinal tenderness. No costovertebral tenderness. Full range of motion. Skin: Warm, dry with normal turgor. Normal color with no rashes, no lesions, and no evidence of cellulitis. MS/ Extremity: Pulses equal, no cyanosis. Neurovascular intact. Full, normal range of motion. Neuro: Awake and alert, GCS 15, oriented to person, place, time, and situation. Cranial nerves II-XII grossly intact. Motor strength 5/5 in all extremities. Sensory grossly intact. Cerebellar exam normal. Normal gait. Psych: Awake, alert, with orientation to person, place and time. Behavior, mood, and affect are within normal limits. Vital Signs: 18:28 BP 176 / 103; Pulse 82; Resp 14; Temp 97.5; Pulse Ox 100% on R/A; Weight 61.23 kg; ch Height 5 ft. 1 in. (154.94 cm); Pain 0/10; 19:00 BP 154 / 90; Pulse 78; Resp 15; Pulse Ox 100% on R/A; vc 19:30 BP 150 / 94; Pulse 77; Resp 15; Pulse Ox 100% on R/A; Pain 0/10; vc 18:28 Body Mass Index 25.51 (61.23 kg, 154.94 cm) MDM: 18:32 Patient medically screened. [facility] 19:37 Data reviewed: vital signs, nurses notes, lab test result(s), EKG. [facility] 06/23 18:56 Order name: Urine Dipstick--Ancillary (enter results) 06/23 18:56 Order name: Urine --Ancillary (enter results) 06/23 19:35 Order name: Urine --Ancillary; Complete Time: 19:37 [facility] 06/23 19:36 Order name: Urine Dipstick-Ancillary; Complete Time: 19:37 [facility] 06/23 18:33 Order name: EKG; Complete Time: 18:34 [facility] 06/23 18:33 Order name: EKG - Nurse/Tech; Complete Time: 18:58 [facility] 06/23 18:33 Order name: Urine Dipstick-Ancillary (obtain specimen); Complete Time: 18:53 [facility] 06/23 18:33 Order name: Urine Test (obtain specimen); Complete Time: 18:53 [facility] Administered Medications: 19:06 Drug: Hydrochlorothiazide 12.5 mg Route: PO; vc 19:51 Follow up: Response: No adverse reaction vc 19:07 Drug: Norvasc 5 mg Route: PO; vc 19:51 Follow up: Response: No adverse reaction; Blood pressure is lowered 19:51 Follow up: Response: No adverse reaction; Blood pressure is lowered Disposition: 06/23/19 19:40 Discharged to Home. Impression: Essential (primary) hypertension. - Condition is Stable. - Discharge Instructions: Hypertension, Hypertension, [id number]. - Prescriptions for hydrochlorothiazide 12.5 mg Oral tablet - take 1 tablet by ORAL route once daily; 30 tablet. Potassium Chloride 20 meq Oral Packet - take 1 packet by ORAL route once daily 1 packet in 6 (six) ounces of water or juice; Take after meal; 30 packet. - Medication Reconciliation Form, Thank You Letter, Antibiotic Education, Prescription Opioid Use, Work release form form. - Follow up: Private Physician; When: 2 - 3 days; Reason: Recheck today's complaints, Continuance of care, Re-evaluation by your physician. Follow up: Alex Hernandez MD; When: 5 - 6 days; Reason: Recheck today's complaints, Re-evaluation by your physician. - Problem is new. - Symptoms have improved. Signatures: Dispatcher [employer] Milagros Parsons RN RN ch Verde, Stephanie, RN RN sv Anderson, Corey, MD MD cha Habalo, Winsy Maribel Klein RN RN vc Corrections: (The following items were deleted from the chart) 19:52 19:40 06/23/2019 19:40 Discharged to Home. Impression: Essential (primary) hypertension. Condition is Stable. Forms are Medication Reconciliation Form, Thank You Letter, Antibiotic Education, Prescription Opioid Use. Follow up: Private Physician; When: 2 - 3 days; Reason: Recheck today's complaints, Continuance of care, Re-evaluation by your physician. Follow up: Alex Hernandez; When: 5 - 6 days; Reason: Recheck today's complaints, Re-evaluation by your physician. Problem is new. Symptoms have improved. luna
[2019-06-23 19:59] VITALS: TEMP 97.5; O2SAT 100
[2019-06-23 20:02] VITALS: BP 150/94
--- NOTE | 2019-06-24 06:34 | EKG ---
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
== END 2019-06-23 19:52 | disposition home or self-care (01) ==
LOC: ER 18:10
DX: I10 Essential (primary) hypertension (principal); F17.210 Nicotine dependence, cigarettes, uncomplicated; Z88.1 Allergy status to other antibiotic agents
CPT/HCPCS: 81003; 81025; 93005; 99284